=== PATIENT | male | born 1965 | race Caucasian/White ===

== ENCOUNTER 2018-06-30 11:40 | Emergency (ER) | payer OTHER ==
--- NOTE | 2018-06-30 12:25 | RAD ---
PORTABLE CHEST: History: Chest pain. FINDINGS: Heart size and mediastinum within normal limits. The lungs are clear of infiltrates. No significant b stacy findings. IMPRESSION: No active intrathoracic disease. POS: [facility]
[2018-06-30 12:39] LABS: #Basophils 0.1 thou/uL (0.0-0.2); #Eosinphils 0.1 thou/uL (0.0-0.7); #Lymphocytes 1.2 thou/uL (1.20-3.40); #Monocytes 0.5 thou/uL (0.11-0.59); #Neutrophils 4.7 thou/uL (1.40-6.50); %Basophils 1.2 % (0.0-1.0); %Eosinophils 1.1 % (0.0-10.0); %Lymphocytes 18.6 % (21.0-51.0); Hemoglobin 16.1 g/dL (14.0-18.0); Mean Corpuscular HGB CONC 33.3 g/dL (32.0-36.0); Mean Corpuscular Hemoglobin 29.6 pg (27.0-31.0); Mean Corpuscular Volume 88.7 fL (78.0-98.0); Mean Platelet Volume 7.6 fL (7.4-10.4); Platelet Count 226 thou/uL (130-400); RBC Distribution Width 11.3 % (11.5-14.5); Red Blood Cell (RBC) Count 5.44 mill/uL (4.70-6.10); White Blood Cell (WBC) Count 6.6 thou/uL (4.8-10.8)
[2018-06-30 12:59] LABS: CKMB 3.7 ng/mL (0-6.6); Troponin I 0.064 ng/mL (< 0.028)
[2018-06-30 13:04] LABS: ALT (SGPT) 69 U/L (8-55); AST (SGOT) 35 U/L (5-34); Albumin 4.8 g/dL (3.5-5.0); Alkaline Phosphatase 71 U/L (40-150); Anion Gap 14 mmol/L (10-20); BUN (Urea Nitrogen) 8 mg/dL (8.4-25.7); Bilirubin, Total 0.9 mg/dL (0.2-1.2); CK (CPK) 94 U/L (30-200); Calc. Creatinine Clearance 0 mL/min (70-130); Calcium 9.8 mg/dL (7.8-10.44); Carbon Dioxide 20 mmol/L (22-29); Chloride 107 mmol/L (98-107); Estimated GFR-MDRD Greater than 90; Globulin 2.7 g/dL (2.4-3.5); Glucose 99 mg/dL (70-105); Lipase 26 U/L (8-78); Potassium 3.9 mmol/L (3.5-5.1); Protein, Total 7.5 g/dL (6.0-8.3); Sodium 137 mmol/L (136-145)
[2018-06-30] MEDS ORDERED: Ketorolac Tromethamine 30 MG/ML VIAL ONE (17:05)
[2018-06-30] MEDS ORDERED: Adacel (T-DAP) 0.5 ML VIAL ONE (19:21)
== END 2018-06-30 17:09 | disposition short-term general hospital (02) ==
LOC: ERS 11:40
DX: I20.0 Unstable angina (principal); I10 Essential (primary) hypertension; E78.5 Hyperlipidemia, unspecified; Z79.82 Long term (current) use of aspirin; Z79.899 Other long term (current) drug therapy
CPT/HCPCS: 36415; 71045; 80053; 82553; 83690; 84484; 85025; 90715; 93005; 94760; 96374; J1885